=== PATIENT | female | born 2000 | race Caucasian/White ===

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

== ENCOUNTER → 2022-12-18 | Outpatient (CLI) | payer OTHER ==
[2022-12-18 12:19] LABS: BASO % 0.5 % (0.0-1.0); HEMATOCRIT 38.2 % (37.0-47.0); LYMPH # 0.9 10*3/uL (1.3-4.4); LYMPH % 22.7 % (27.0-41.0); MEAN CELL VOLUME 85.8 fl (81.0-99.0); MEAN CORPUSCULAR HGB CONC 31.4 g/dl (33.0-37.0); MEAN PLATELET VOLUME 9.8 fl (9.6-12.3); MONO # 0.3 10*3/uL (0.1-1.0); NEUT # 2.7 10*3/uL (2.3-7.9); NEUT % 67.6 % (47.0-73.0); PLATELET COUNT AUTOMATED 231 10*3/uL (130-400); RED BLOOD COUNT 4.45 10*6/uL (4.10-5.10); RED CELL DISTRI WIDTH 14.7 % (0-14.5)
[2022-12-18 12:52] LABS: ALKALINE PHOSPHATASE 84 U/L (46-116); BUN 8 mg/dl (9-23); CHLORIDE 107 mmol/L (98-107); CHOLESTEROL 127 mg/dL (<200); LDL CHOLESTEROL 82 mg/dL (9-159); POTASSIUM 3.9 mmol/L (3.4-5.1); SGPT/ALT 23 U/L (10-49); TRIGLYCERIDES 57 mg/dl (<150)
== END | disposition home or self-care (01) ==
LOC: LAB 11:42
PROVIDERS: ATTEND Nurse Practitioner Family
DX: R55 Syncope and collapse (principal); E16.1 Other hypoglycemia; D72.9 Disorder of white blood cells, unspecified; L68.0 Hirsutism; Z83.3 Family history of diabetes mellitus

== ENCOUNTER 2023-12-02 12:11 | Emergency (ER) | payer MEDICAID ==
[~2023-12-02] VITALS: Ht 170.1 cm; Wt 97.1 kg
[2023-12-02] MEDS ORDERED: PREDNISONE20 M1 PO (12:42)
== END 2023-12-02 12:47 | disposition home or self-care (01) ==
LOC: ED 12:11
DX: R07.1 Chest pain on breathing (principal); Z88.8 Allergy status to other drugs, medicaments and biological substances

== ENCOUNTER 2023-12-10 13:56 | Emergency (ER) | payer SELFPAY ==
[~2023-12-10] VITALS: Ht 170.1 cm; Wt 95.7 kg
[~2023-12-10 13:56] MED LIST changes: +PREDNISONE20 M1 PO
[2023-12-10 14:47] LABS: BILIRUBIN Negative (Negative); BLOOD Negative (Negative); CLARITY Cloudy (Clear); COLOR Yellow (Yellow); GLUCOSE Negative (Negative); KETONE Negative (Negative); LEUKO ESTERASE 1+ (Negative); NITRITE Negative (Negative)
[2023-12-10 14:55] LABS: BACTERIA 1+; RBC 0-2 rbc/hpf (0-2)
[2023-12-10 15:22] LABS: BASO # 0.1 10*3/uL (0.0-0.1); BASO % 0.7 % (0.0-1.0); EOS # 0.1 10*3/uL (0.0-0.4); EOS % 1.2 % (1.0-4.0); HEMATOCRIT 38.6 % (37.0-47.0); LYMPH # 1.7 10*3/uL (1.3-4.4); LYMPH % 24.2 % (27.0-41.0); MEAN CELL VOLUME 84.8 fl (81.0-99.0); MEAN CORPUSCULAR HGB 27.3 pg (27.0-31.0); MEAN CORPUSCULAR HGB CONC 32.1 g/dl (33.0-37.0); MEAN PLATELET VOLUME 9.3 fl (9.6-12.3); MONO # 0.5 10*3/uL (0.1-1.0); MONO % 7.9 % (3.0-9.0); NEUT # 4.5 10*3/uL (2.3-7.9); NEUT % 65.7 % (47.0-73.0); PLATELET COUNT AUTOMATED 283 10*3/uL (130-400); RED BLOOD COUNT 4.55 10*6/uL (4.10-5.10); WHITE BLOOD COUNT 6.9 10*3/uL (4.8-10.8)
[2023-12-10 15:45] LABS: ALKALINE PHOSPHATASE 84 U/L (46-116); BUN 8 mg/dl (9-23); CHLORIDE 106 mmol/L (98-107); LIPASE 36 U/L (12-53); POTASSIUM 3.6 mmol/L (3.4-5.1); SGPT/ALT 10 U/L (5-49)
[2023-12-10] MEDS ORDERED: CIPRO500 MG PO (16:56)
== END 2023-12-10 17:00 | disposition home or self-care (01) ==
LOC: ED 13:56
PROVIDERS: Internal Medicine
DX: N39.0 Urinary tract infection, site not specified (principal); F41.9 Anxiety disorder, unspecified; R11.2 Nausea with vomiting, unspecified; Z88.8 Allergy status to other drugs, medicaments and biological substances

== ENCOUNTER → 2024-01-09 | Outpatient (CLI) | payer OTHER ==
[~2024-01-09] MED LIST changes: +CIPRO500 MG PO
[2024-01-09 14:22] LABS: BILIRUBIN Negative (Negative); BLOOD 2+ (Negative); CLARITY Cloudy (Clear); COLOR Yellow (Yellow); GLUCOSE Negative (Negative); KETONE Trace (Negative); LEUKO ESTERASE 1+ (Negative); NITRITE Negative (Negative); PH 5.5 (4.5-8.0); SPECIFIC GRAVITY >= 1.030 (1.001-1.030); UROBILINOGEN 0.2 E.U./dl (0.0-1.0)
[2024-01-09 14:44] LABS: BACTERIA 1+; CALCIUM OXALATE CRYSTALS 1+; MUCOUS 1+; WBC 16-20 wbc/hpf (0-5)
== END | disposition home or self-care (01) ==
LOC: LAB 10:25
PROVIDERS: ATTEND Nurse Practitioner Family
DX: N39.0 Urinary tract infection, site not specified (principal); R23.9 Unspecified skin changes

== ENCOUNTER → 2024-02-05 | Outpatient (CLI) | payer OTHER ==
[2024-02-05 12:12] LABS: BASO # 0.1 10*3/uL (0.0-0.1); BASO % 0.9 % (0.0-1.0); EOS # 0.1 10*3/uL (0.0-0.4); HEMATOCRIT 40.6 % (37.0-47.0); LYMPH # 1.7 10*3/uL (1.3-4.4); LYMPH % 30.5 % (27.0-41.0); MEAN CELL VOLUME 88.6 fl (81.0-99.0); MEAN CORPUSCULAR HGB 27.1 pg (27.0-31.0); MEAN CORPUSCULAR HGB CONC 30.5 g/dl (33.0-37.0); MEAN PLATELET VOLUME 9.9 fl (9.6-12.3); MONO # 0.5 10*3/uL (0.1-1.0); MONO % 8.3 % (3.0-9.0); NEUT # 3.2 10*3/uL (2.3-7.9); NEUT % 58.1 % (47.0-73.0); PLATELET COUNT AUTOMATED 278 10*3/uL (130-400); RED BLOOD COUNT 4.58 10*6/uL (4.10-5.10); RED CELL DISTRI WIDTH 14.7 % (0-14.5); WHITE BLOOD COUNT 5.5 10*3/uL (4.8-10.8)
[2024-02-05 12:25] LABS: ALKALINE PHOSPHATASE 82 U/L (46-116); BUN 10 mg/dl (9-23); CHLORIDE 108 mmol/L (98-107); CHOLESTEROL 172 mg/dL (<200); LDL CHOLESTEROL 99 mg/dL (9-159); POTASSIUM 4.1 mmol/L (3.4-5.1); SGPT/ALT 10 U/L (5-49); TOTAL PROTEIN 7.1 gm/dL (6.0-8.0); TRIGLYCERIDES 125 mg/dl (<150)
[2024-02-05 13:10] LABS: VITAMIN D, 25-HYDROXY 24.6 ng/mL (30-100)
== END | disposition home or self-care (01) ==
LOC: LAB 11:34
PROVIDERS: ATTEND Nurse Practitioner Family
DX: Z13.220 Encounter for screening for lipoid disorders (principal); Z13.29 Encounter for screening for other suspected endocrine disorder; N39.0 Urinary tract infection, site not specified; F41.1 Generalized anxiety disorder; E55.9 Vitamin D deficiency, unspecified

== ENCOUNTER 2024-07-04 13:01 | Emergency (ER) | payer OTHER ==
[~2024-07-04] VITALS: Ht 167.6 cm; Wt 113.4 kg
[2024-07-04] MEDS ORDERED: METHOCARBAMOL500 M1 PO (13:39)
[2024-07-04] MEDS ORDERED: PREDNISONE50 MG PO (13:39)
[2024-07-04] MEDS ORDERED: METHOCARBAMOL 500 MG TAB PO ONE (13:40)
[2024-07-04] MEDS ORDERED: methylPREDNISolone sod succ 125 MG VIAL IM ONE (13:40)
== END 2024-07-04 14:11 | disposition home or self-care (01) ==
LOC: ED 13:01
DX: S16.1XXA Strain of muscle, fascia and tendon at neck level, initial encounter (principal); Z91.018 Allergy to other foods; W19.XXXA Unspecified fall, initial encounter; Y93.89 Activity, other specified; Y92.89 Other specified places as the place of occurrence of the external cause; Y99.8 Other external cause status

== ENCOUNTER 2024-07-06 16:54 | Emergency (ER) | payer OTHER ==
[~2024-07-06] VITALS: Ht 170.1 cm; Wt 113.4 kg
[~2024-07-06 16:54] MED LIST changes: +METHOCARBAMOL500 M1 PO; +PREDNISONE50 MG PO
[2024-07-06] MEDS ORDERED: BUPivacaine 0.25% 10 ML VIAL SC ONE (17:25)
[2024-07-06] MEDS ORDERED: Ketorolac Tromethamine 60 MG/2 ML VIAL IM ONE (17:25)
== END 2024-07-06 18:42 | disposition home or self-care (01) ==
LOC: ED 16:54
DX: S16.1XXA Strain of muscle, fascia and tendon at neck level, initial encounter (principal); F41.9 Anxiety disorder, unspecified; M79.10 Myalgia, unspecified site; Z88.8 Allergy status to other drugs, medicaments and biological substances; X58.XXXA Exposure to other specified factors, initial encounter; Y93.89 Activity, other specified; Y92.89 Other specified places as the place of occurrence of the external cause; Y99.8 Other external cause status

== ENCOUNTER 2024-08-06 21:43 | Emergency (ER) | payer OTHER ==
[~2024-08-06] VITALS: Ht 170.1 cm; Wt 113.4 kg
[2024-08-06] MEDS ORDERED: HYDROXYZINE10 MG PO (21:56)
[2024-08-06] MEDS ORDERED: LEXAPRO10 MG PO (21:56)
== END 2024-08-07 00:53 | disposition home or self-care (01) ==
LOC: ED 21:43
DX: R51.9 Headache, unspecified (principal); F41.9 Anxiety disorder, unspecified; F84.0 Autistic disorder; F17.200 Nicotine dependence, unspecified, uncomplicated; Z79.899 Other long term (current) drug therapy

== ENCOUNTER → 2024-08-11 | Outpatient (CLI) | payer OTHER ==
[~2024-08-11] MED LIST changes: +HYDROXYZINE10 MG PO; +LEXAPRO10 MG PO
[2024-08-11 15:29] LABS: BASO # 0.1 10*3/uL (0.0-0.1); BASO % 0.6 % (0.0-1.0); EOS # 0.1 10*3/uL (0.0-0.4); EOS % 1.2 % (1.0-4.0); HEMATOCRIT 44.1 % (37.0-47.0); MEAN CELL VOLUME 90.4 fl (81.0-99.0); MEAN CORPUSCULAR HGB 27.3 pg (27.0-31.0); MEAN CORPUSCULAR HGB CONC 30.2 g/dl (33.0-37.0); MONO # 0.7 10*3/uL (0.1-1.0); MONO % 8.3 % (3.0-9.0); NEUT # 5.8 10*3/uL (2.3-7.9); NEUT % 64.8 % (47.0-73.0); PLATELET COUNT AUTOMATED 268 10*3/uL (130-400); RED BLOOD COUNT 4.88 10*6/uL (4.10-5.10); RED CELL DISTRI WIDTH 13.8 % (0-14.5); WHITE BLOOD COUNT 8.9 10*3/uL (4.8-10.8)
[2024-08-11 15:41] LABS: ALKALINE PHOSPHATASE 78 U/L (46-116); BUN 9 mg/dl (9-23); CHLORIDE 105 mmol/L (98-107); CHOLESTEROL 201 mg/dL (<200); LDL CHOLESTEROL 123 mg/dL (9-159); POTASSIUM 3.9 mmol/L (3.4-5.1); SGPT/ALT 17 U/L (5-49); TOTAL PROTEIN 6.9 gm/dL (6.0-8.0); TRIGLYCERIDES 138 mg/dl (<150)
== END | disposition home or self-care (01) ==
LOC: LAB 08:32
PROVIDERS: ATTEND Nurse Practitioner Family
DX: E55.9 Vitamin D deficiency, unspecified (principal); F41.1 Generalized anxiety disorder; Z13.220 Encounter for screening for lipoid disorders

== ENCOUNTER 2024-09-19 20:50 | Emergency (ER) | payer OTHER ==
[~2024-09-19] VITALS: Ht 170.1 cm; Wt 113.4 kg
[2024-09-19] MEDS ORDERED: Dicyclomine Hydrochloride 20 MG/10 ML OSYR PO STA (21:14)
[2024-09-19] MEDS ORDERED: Lidocaine Hydrochloride 15 ML UDC PO STA (21:14)
[2024-09-19] MEDS ORDERED: MG-AL HYDROXIDE/SIMETICONE 30 ML UDC PO STA (21:14)
[2024-09-19 21:50] LABS: BASO # 0.1 10*3/uL (0.0-0.1); BASO % 0.6 % (0.0-1.0); EOS # 0.1 10*3/uL (0.0-0.4); EOS % 1.4 % (1.0-4.0); HEMATOCRIT 41.1 % (37.0-47.0); MEAN CELL VOLUME 89.2 fl (81.0-99.0); MEAN CORPUSCULAR HGB CONC 31.4 g/dl (33.0-37.0); MEAN PLATELET VOLUME 9.6 fl (9.6-12.3); MONO # 0.6 10*3/uL (0.1-1.0); MONO % 7.3 % (3.0-9.0); NEUT # 5.6 10*3/uL (2.3-7.9); PLATELET COUNT AUTOMATED 290 10*3/uL (130-400); RED BLOOD COUNT 4.61 10*6/uL (4.10-5.10); RED CELL DISTRI WIDTH 13.7 % (0-14.5); WHITE BLOOD COUNT 8.4 10*3/uL (4.8-10.8)
[2024-09-19] MEDS ORDERED: Ondansetron Hydrochloride 4 MG TAB SL ONE (22:00)
[2024-09-19 22:20] LABS: ALKALINE PHOSPHATASE 90 U/L (46-116); BUN 10 mg/dl (9-23); CHLORIDE 105 mmol/L (98-107); POTASSIUM 3.9 mmol/L (3.4-5.1); SGPT/ALT 14 U/L (5-49); TOTAL PROTEIN 7.3 gm/dL (6.0-8.0)
[2024-09-19 23:38] LABS: BILIRUBIN Negative (Negative); BLOOD 3+ (Negative); CLARITY Cloudy (Clear); COLOR Yellow (Yellow); GLUCOSE Negative (Negative); KETONE Trace (Negative); LEUKO ESTERASE 1+ (Negative); NITRITE Negative (Negative); PH 5.5 (4.5-8.0); SPECIFIC GRAVITY >= 1.030 (1.001-1.030)
[2024-09-19 23:45] LABS: EPITHELIAL CELLS 31-40
[2024-09-19 23:46] LABS: BACTERIA 1+; RBC 16-20 rbc/hpf (0-2)
[2024-09-20] MEDS ORDERED: diphenhydrAMINE hydrochloride 50 MG/ML VIAL IV ONE (00:10)
[2024-09-20] MEDS ORDERED: Metoclopramide Hydrochloride 10 MG/2 ML VIAL IV ONE (00:10)
[2024-09-20] MEDS ORDERED: Pantoprazole Sodium 40 MG VIAL IV ONE (00:10)
[2024-09-20] MEDS ORDERED: OMEPRAZOLE40 MG PO (00:42)
[2024-09-20] MEDS ORDERED: Ondansetron4 MG PO (00:42)
[2024-09-20] MEDS ORDERED: REGLAN10 M1 PO (00:42)
== END 2024-09-20 01:04 | disposition home or self-care (01) ==
LOC: ED 20:50
PROVIDERS: Nurse Practitioner Family
DX: K29.70 Gastritis, unspecified, without bleeding (principal); F41.9 Anxiety disorder, unspecified; F84.0 Autistic disorder; Z79.899 Other long term (current) drug therapy; Z88.8 Allergy status to other drugs, medicaments and biological substances

== ENCOUNTER 2024-11-09 10:49 | Emergency (ER) | payer OTHER ==
[~2024-11-09] VITALS: Ht 165.1 cm; Wt 99.8 kg
[~2024-11-09 10:49] MED LIST changes: +OMEPRAZOLE40 MG PO; +Ondansetron4 MG PO; +REGLAN10 M1 PO
[2024-11-09] MEDS ORDERED: MG-AL HYDROXIDE/SIMETICONE 30 ML UDC PO STA (11:17)
[2024-11-09] MEDS ORDERED: Dicyclomine Hydrochloride 20 MG/10 ML OSYR PO STA (11:17)
[2024-11-09 12:32] LABS: BASO # 0.1 10*3/uL (0.0-0.1); BASO % 0.8 % (0.0-1.0); EOS # 0.1 10*3/uL (0.0-0.4); EOS % 1.3 % (1.0-4.0); MEAN CELL VOLUME 86.9 fl (81.0-99.0); MEAN CORPUSCULAR HGB 27.5 pg (27.0-31.0); MEAN PLATELET VOLUME 9.4 fl (9.6-12.3); MONO # 0.4 10*3/uL (0.1-1.0); MONO % 7.3 % (3.0-9.0); NEUT # 3.9 10*3/uL (2.3-7.9); NEUT % 65.5 % (47.0-73.0); NUCLEATED RED BLOOD CELL 0.0 % (0.0-0.0); NUCLEATED RED BLOOD CELL 0.0 10*3/uL (0.0-0.0); PLATELET COUNT AUTOMATED 274 10*3/uL (130-400); RED CELL DISTRI WIDTH 13.1 % (0-14.5)
[2024-11-09 12:54] LABS: BUN 10 mg/dl (9-23); SGPT/ALT 15 U/L (5-49)
== END 2024-11-09 13:30 | disposition home or self-care (01) ==
LOC: ED 10:49
PROVIDERS: Nurse Practitioner Family
DX: K21.9 Gastro-esophageal reflux disease without esophagitis (principal); F41.9 Anxiety disorder, unspecified; Z91.018 Allergy to other foods; Z79.899 Other long term (current) drug therapy

== ENCOUNTER → 2025-02-23 | Outpatient (CLI) | payer OTHER | END | disposition home or self-care (01) | LOC: US 14:30 | PROVIDERS: ATTEND Nurse Practitioner Women's Health | DX: N92.1 Excessive and frequent menstruation with irregular cycle (principal) ==